=== PATIENT | female | born 1985 | race Caucasian/White ===

== ENCOUNTER 2016-11-10 12:50 | Emergency (ER) | payer SELFPAY ==
[2016-11-10 13:20] LABS: Bilirubin Negative (Negative); Blood, Urine Negative (Negative); Glucose, Urine (Dipstick) Negative (Negative); Ketone, Urine Negative (Negative); Nitrite Negative (Negative); Protein, Urine (Dipstick) Negative (Neg-Trace); Urobilinogen 0.2 mg/dL (0.2-1.0)
== END 2016-11-10 13:57 | disposition home or self-care (01) ==
LOC: BURERS 12:50
DX: M54.5 Low back pain (principal); N91.2 Amenorrhea, unspecified; F17.210 Nicotine dependence, cigarettes, uncomplicated
CPT/HCPCS: 81003; 81025; 99283

== ENCOUNTER 2017-11-10 16:56 | Emergency (ER) | payer SELFPAY ==
[2017-11-10] MEDS ORDERED: Ondansetron HCl/PF 4 MG/2 ML Vial ONE (17:14)
[2017-11-10 17:54] LABS: #Basophils 0.1 thou/uL (0.0-0.2); #Lymphocytes 0.6 thou/uL (1.20-3.40); #Monocytes 0.4 thou/uL (0.11-0.59); #Neutrophils 18.7 thou/uL (1.40-6.50); %Basophils 0.3 % (0.0-1.0); %Eosinophils 0.1 % (0.0-10.0); %Lymphocytes 3.1 % (21.0-51.0); %Monocytes 1.9 % (0.0-10.0); %Neutrophils 94.6 % (42.0-75.0); Hemoglobin 15.1 g/dL (12.0-16.0); MDiff Complete? YES; Mean Corpuscular HGB CONC 35.9 g/dL (32.0-36.0); Mean Corpuscular Hemoglobin 34.6 pg (27.0-31.0); Mean Corpuscular Volume 96.2 fl (81.0-99.0); Platelet Count 278 thou/uL (130-400); RBC Distribution Width 11.7 % (11.5-14.5); Red Blood Cell (RBC) Count 4.36 mill/uL (4.20-5.40); Rouleaux Formation SLIGHT = 1-5 cells (100X) (None Seen); White Blood Cell (WBC) Count 19.8 thou/uL (4.8-10.8)
[2017-11-10 18:11] LABS: ALT (SGPT) 11 U/L (8-55); AST (SGOT) 14 U/L (5-34); Albumin 4.2 g/dL (3.5-5.0); Alkaline Phosphatase 78 U/L (40-150); Anion Gap 15 mmol/L (10-20); BUN (Urea Nitrogen) 13 mg/dL (7.0-18.7); Bilirubin, Total 0.3 mg/dL (0.2-1.2); Calc. Creatinine Clearance 0 mL/min (70-130); Calcium 8.7 mg/dL (7.8-10.44); Carbon Dioxide 19 mmol/L (22-29); Chloride 108 mmol/L (98-107); Estimated GFR-MDRD 89; Glucose 86 mg/dL (70-105); Lipase 12 U/L (8-78); Potassium 4.1 mmol/L (3.5-5.1); Protein, Total 7.2 g/dL (6.0-8.3); Sodium 138 mmol/L (136-145)
[2017-11-10 18:57] LABS: Bilirubin Negative (Negative); Blood, Urine Moderate (Negative); Clarity Clear (Clear); Glucose, Urine (Dipstick) Negative (Negative); Leukocyte Negative (Negative); Nitrite Negative (Negative); Protein, Urine (Dipstick) Negative (Neg-Trace); Specific Gravity, Urine 1.015 (1.005-1.030); Urobilinogen 0.2 mg/dL (0.2-1.0); pH, Urine 5.5 (5.0-9.0)
[2017-11-10 19:05] LABS: Bacteria/HPF None Seen HPF (None Seen); Crystals/HPF None Seen HPF (Negative); Hyaline Casts/LPF NONE SEEN LPF (0-3 Hyaline); Other Casts/LPF None Seen LPF (0-3 Hyaline); Oval Fat Bodies/HPF None Seen HPF (None Seen); RBC/HPF 0-3 HPF (0-3); Renal Epithelial None Seen HPF (0-3); Sperm/HPF None Seen HPF (None Seen); Squamous Epithelial 0-3 HPF (0-3); Transitional Epithelial NONE SEEN HPF (0-3); Trichomonas/HPF None Seen HPF (None Seen); WBC/HPF None Seen HPF (0-3); Yeast-All Forms None Seen HPF (None Seen)
== END 2017-11-10 20:52 | disposition home or self-care (01) ==
LOC: BURERS 16:56
DX: K52.9 Noninfective gastroenteritis and colitis, unspecified (principal); F17.210 Nicotine dependence, cigarettes, uncomplicated
CPT/HCPCS: 80053; 81003; 81015; 83690; 85025; 96361; 96374; J2405

== ENCOUNTER 2017-12-24 13:02 | Emergency (ER) | payer SELFPAY | END 2017-12-24 13:26 | disposition home or self-care (01) | LOC: BURERS 13:02 | DX: H00.011 Hordeolum externum right upper eyelid (principal); F17.210 Nicotine dependence, cigarettes, uncomplicated | CPT/HCPCS: 99283 ==

== ENCOUNTER 2019-01-15 20:27 | Emergency (ER) | payer OTHER, SELFPAY ==
[2019-01-15] MEDS ORDERED: diphenhydrAMINE 25 MG CAP ONE (21:16)
[2019-01-15] MEDS ORDERED: Clindamycin 150 MG CAP ONE (21:16)
== END 2019-01-15 21:20 | disposition home or self-care (01) ==
LOC: BURERS 20:30
DX: T63.481A Toxic effect of venom of other arthropod, accidental (unintentional), initial encounter (principal); F17.210 Nicotine dependence, cigarettes, uncomplicated
CPT/HCPCS: 99282; Q0163

== ENCOUNTER 2019-09-18 12:13 | Emergency (ER) | payer OTHER, SELFPAY ==
[2019-09-18 12:51] LABS: Bilirubin Negative (Negative); Blood, Urine Moderate (Negative); Clarity Slightly Cloudy (Clear); Glucose, Urine (Dipstick) Negative (Negative); Leukocyte Large (Negative); Nitrite Negative (Negative); Protein, Urine (Dipstick) Negative (Neg-Trace); Urobilinogen 0.2 mg/dL (Less than 2)
[2019-09-18 13:02] LABS: Bacteria/HPF 1+ HPF (None Seen); Squamous Epithelial 0-3 HPF (0-3); WBC/HPF 21-50 HPF (0-3)
[2019-09-18] MEDS ORDERED: traMADol HCl 50 MG TAB ONE (13:07)
[2019-09-18] MEDS ORDERED: Phenazopyridine HCl 97.5 MG TABLET ONE (13:08)
[2019-09-18] MEDS ORDERED: Nitrofurantoin Monohyd/M-Cryst 100 MG CAP ONE (13:08)
== END 2019-09-18 13:12 | disposition home or self-care (01) ==
LOC: BURERS 12:13
DX: N30.01 Acute cystitis with hematuria (principal); F17.210 Nicotine dependence, cigarettes, uncomplicated
CPT/HCPCS: 81003; 81015; 87077; 87086; 87186; 99283

== ENCOUNTER 2019-11-29 15:13 | Emergency (ER) | payer BC, SELFPAY ==
[2019-11-29 16:12] LABS: #Basophils 0.1 thou/uL (0.0-0.2); #Eosinphils 0.1 thou/uL (0.0-0.7); #Lymphocytes 2.2 thou/uL (1.20-3.40); #Monocytes 0.7 thou/uL (0.11-0.59); #Neutrophils 8.8 thou/uL (1.40-6.50); %Basophils 0.8 % (0.0-1.0); %Eosinophils 0.5 % (0.0-10.0); %Lymphocytes 18.5 % (21.0-51.0); %Monocytes 5.5 % (0.0-10.0); %Neutrophils 74.7 % (42.0-75.0); Hemoglobin 14.1 g/dL (12.0-16.0); Mean Corpuscular HGB CONC 32.3 g/dL (32.0-36.0); Mean Corpuscular Hemoglobin 31.1 pg (27.0-31.0); Mean Corpuscular Volume 96.3 fL (78.0-98.0); Mean Platelet Volume 8.2 fL (7.4-10.4); Platelet Count 361 thou/uL (130-400); RBC Distribution Width 12.1 % (11.5-14.5); Red Blood Cell (RBC) Count 4.53 mill/uL (4.20-5.40); White Blood Cell (WBC) Count 11.8 thou/uL (4.8-10.8)
[2019-11-29 16:26] LABS: Anion Gap 14 mmol/L (10-20); BUN (Urea Nitrogen) 10 mg/dL (7.0-18.7); Calc. Creatinine Clearance 0 mL/min (70-130); Calcium 9.5 mg/dL (7.8-10.44); Carbon Dioxide 23 mmol/L (22-29); Chloride 105 mmol/L (98-107); Estimated GFR-MDRD 83; Glucose 71 mg/dL (70-105); Potassium 3.8 mmol/L (3.5-5.1); Sodium 138 mmol/L (136-145)
[2019-11-29] MEDS ORDERED: Acetaminophen 500 MG TAB ONE (16:31)
[2019-11-29 17:57] LABS: Bilirubin Negative (Negative); Blood, Urine Negative (Negative); Clarity Cloudy (Clear); Glucose, Urine (Dipstick) Negative (Negative); Leukocyte Negative (Negative); Nitrite Negative (Negative); Protein, Urine (Dipstick) Negative (Neg-Trace)
== END 2019-11-29 18:05 | disposition home or self-care (01) ==
LOC: BURERS 15:13
DX: O99.89 Other specified diseases and conditions complicating pregnancy, childbirth and the puerperium (principal); R10.31 Right lower quadrant pain; F17.210 Nicotine dependence, cigarettes, uncomplicated; Z71.6 Tobacco abuse counseling
CPT/HCPCS: 36415; 80048; 81003; 84702; 85025; 87086; 96360; 96361; 99406

== ENCOUNTER 2020-01-18 14:24 | Emergency (ER) | payer BC ==
[2020-01-18] MEDS ORDERED: Lidocaine 2% PF 5 ML VIAL ONE (14:35)
[2020-01-18] MEDS ORDERED: Acetaminophen 500 MG TAB ONE (15:40)
--- NOTE | 2020-01-18 17:54 | RAD ---
LEFT MIDDLE FINGER 01/18/20 There has been amputation of the tip of this finger, including a portion of the terminal tuft of the distal phalanx. The remainder of the bones appear intact. IMPRESSION: Tip amputation with partial amputation of the terminal tuft. POS: HOME
== END 2020-01-18 15:49 | disposition short-term general hospital (02) ==
LOC: BURERS 14:24
DX: O9A.211 Injury, poisoning and certain other consequences of external causes complicating pregnancy, first trimester (principal); S68.123A Partial traumatic metacarpophalangeal amputation of left middle finger, initial encounter; W26.0XXA Contact with knife, initial encounter; Y92.009 Unspecified place in unspecified non-institutional (private) residence as the place of occurrence of the external cause; Z3A.13 13 weeks gestation of pregnancy
CPT/HCPCS: 64450; J2001

== ENCOUNTER 2022-09-13 11:24 | Emergency (ER) | payer BC, OTHER | END 2022-09-13 12:33 | disposition home or self-care (01) | LOC: BURERS 11:24 | DX: J01.00 Acute maxillary sinusitis, unspecified (principal); F17.210 Nicotine dependence, cigarettes, uncomplicated | CPT/HCPCS: 99283 ==

== ENCOUNTER 2022-11-24 16:27 | Emergency (ER) | payer OTHER, SELFPAY | END 2022-11-24 17:15 | disposition home or self-care (01) | LOC: BURERS 16:27 | DX: J02.9 Acute pharyngitis, unspecified (principal); F17.210 Nicotine dependence, cigarettes, uncomplicated | CPT/HCPCS: 87081; 87430; 99283 ==